=== PATIENT | female | born 1985 | race Caucasian/White ===

== ENCOUNTER 2017-05-04 09:35 | Observation (INO) | payer OTHER ==
[2017-05-04] MEDS ORDERED: PREN-96 PO (17:40)
== END 2017-05-04 11:00 | disposition home or self-care (01) | DRG 782 ==
LOC: LDRP 09:35
PROVIDERS: ADMIT Specialist; ATTEND Specialist
DX: O62.9 Abnormality of forces of labor, unspecified (principal); Z3A.39 39 weeks gestation of pregnancy
CPT/HCPCS: 59025; 81002; G0378

== ENCOUNTER 2017-05-05 09:30 | Observation (INO) | payer OTHER ==
[~2017-05-05] VITALS: Ht 175.3 cm; Wt 103.0 kg
[~2017-05-05 09:30] MED LIST: PREN-96 PO
[2017-05-05] MEDS ORDERED: LACTATED RINGER'S 2,000 ML IV ONE (10:15)
[2017-05-05 10:45] LABS: Basophils # (auto) 0 uL; Basophils % (auto) 0.2 % (0.0-2.0); Eosinophils # (auto) 0.1 uL; Eosinophils % (auto) 0.7 % (0.0-7.0); Hematocrit 37.4 % (36.0-46.0); Hemoglobin 12.6 g/dL (12.2-16.2); Lymphocytes # (auto) 2.5 uL; Lymphocytes % (auto) 25.6 % (10.0-50.0); Mean Corpuscular Hemoglobin 30.2 pg (28.0-32.0); Mean Corpuscular Hgb Conc. 33.6 g/dL (32.0-36.0); Mean Corpuscular Volume 89.8 fL (80.0-100.0); Mean Platelet Volume 9.1 fL (6.9-10.8); Monocytes # (auto) 0.6 uL; Monocytes % (auto) 6.4 % (0.0-12.0); Neutrophils # (auto) 6.6 uL; Neutrophils % (auto) 67.1 % (37.0-80.0); Platelet Count (auto) 182 10^3/uL (140-450); Red Cell Distribution Width 13.5 % (11.8-14.3); White Blood Cell 9.9 10^3/uL (4.4-10.8)
[2017-05-05 11:05] LABS: BUN/Creatinine Ratio 8.9; Calcium 8.7 mg/dL (8.5-10.1); Potassium 3.6 mmol/L (3.5-5.1)
== END 2017-05-05 11:30 | disposition home or self-care (01) | DRG 781 ==
LOC: LDRP 09:30
PROVIDERS: ADMIT Specialist; ATTEND Specialist
DX: O26.893 Other specified pregnancy related conditions, third trimester (principal); R19.7 Diarrhea, unspecified; Z3A.40 40 weeks gestation of pregnancy
CPT/HCPCS: 36415; 59025; 80048; 81002; 85025; G0378; 96361; 96366

== ENCOUNTER 2017-05-07 11:55 | Observation (INO) | payer OTHER | END 2017-05-07 13:10 | disposition home or self-care (01) | DRG 782 | LOC: LDRP 11:55 | PROVIDERS: ADMIT Specialist; ATTEND Specialist | DX: O48.0 Post-term pregnancy (principal); Z3A.40 40 weeks gestation of pregnancy | CPT/HCPCS: 59025; 76818; 81002; G0378 ==

== ENCOUNTER 2017-05-09 15:00 | Observation (INO) | payer OTHER ==
[~2017-05-09] VITALS: Ht 175.3 cm; Wt 103.0 kg
[2017-05-09] MEDS ORDERED: ceFAZolin 1GM/50ML D5W 50 ML IV ONE (15:04)
== END 2017-05-09 16:50 | disposition home or self-care (01) | DRG 782 ==
LOC: LDRP 15:00
PROVIDERS: ADMIT Obstetrics & Gynecology; ATTEND Obstetrics & Gynecology
DX: O48.0 Post-term pregnancy (principal); O62.9 Abnormality of forces of labor, unspecified; Z3A.40 40 weeks gestation of pregnancy
CPT/HCPCS: 59025; 76818; 81002; G0378; J0690

== ENCOUNTER 2017-05-10 19:50 | Inpatient (IN) | payer OTHER ==
[~2017-05-10] VITALS: Ht 175.3 cm; Wt 103.0 kg
[2017-05-10] MEDS ORDERED: LACT. RINGERS/OXYTOCIN 20UNITS 1,000 ML IV SCH (20:34)
[2017-05-10] MEDS ORDERED: NALBUPHINE HCL 10 MG/1ml INJECTION IV PRN (20:45)
[2017-05-10] MEDS ORDERED: DERMOPLAST 60ML BOTTLE TOP PRN (20:45)
[2017-05-10] MEDS ORDERED: METHYLERGONOVINE MALEATE 0.2 MG/ML AMP IM PRN (20:45)
[2017-05-10] MEDS ORDERED: PHISODERM TOP SOLN 240ML BTL TOP PRN (20:45)
[2017-05-10] MEDS ORDERED: LIDOCAINE 2%HCL (LOCAL ANESTH.) INJ 20ML MDV IJ ONE (20:45)
[2017-05-10] MEDS ORDERED: WITCH HAZEL-GLYCERIN PAD TOP PRN (20:45)
[2017-05-10] MEDS: LACTATED RINGER'S 1,000 ML IV SCH (21:04)
[2017-05-10 21:24] LABS: INR 0.92 (0.9-1.15); Partial Thromboplastin Time 26.7 sec (22.64-33.71)
[2017-05-10 21:25] LABS: Basophils # (auto) 0 uL; Basophils % (auto) 0.2 % (0.0-2.0); Eosinophils # (auto) 0.1 uL; Eosinophils % (auto) 0.8 % (0.0-7.0); Hematocrit 34.9 % (36.0-46.0); Hemoglobin 11.8 g/dL (12.2-16.2); Lymphocytes # (auto) 2.8 uL; Lymphocytes % (auto) 29.2 % (10.0-50.0); Mean Corpuscular Hemoglobin 30.4 pg (28.0-32.0); Mean Corpuscular Hgb Conc. 33.7 g/dL (32.0-36.0); Mean Corpuscular Volume 90.2 fL (80.0-100.0); Mean Platelet Volume 9.1 fL (6.9-10.8); Monocytes # (auto) 0.6 uL; Monocytes % (auto) 5.8 % (0.0-12.0); Neutrophils # (auto) 6.1 uL; Platelet Count (auto) 156 10^3/uL (140-450); Red Cell Distribution Width 13.5 % (11.8-14.3); White Blood Cell 9.5 10^3/uL (4.4-10.8)
[2017-05-10 21:26] LABS: Albumin 2.6 g/dL (3.4-5.0); BUN/Creatinine Ratio 10.8; Potassium 3.7 mmol/L (3.5-5.1)
[2017-05-10 21:28] LABS: Bilirubin, Total 0.2 mg/dL (0.2-1.0); Total Protein 6.1 g/dL (6.4-8.2)
[2017-05-10 22:45] LABS: Urine Bilirubin Negative (Negative); Urine Blood TRACE /uL (Negative); Urine Color Yellow (Yellow); Urine Glucose Normal (Normal); Urine Ketone Negative (Negative); Urine Nitrite Negative (Negative); Urine RBC <1 /hpf (0 - 4); Urine Squamous Epithelial Cell FEW /hpf (<5); Urine Urobilinogen Normal (Negative); Urine pH 6.5 (5.0-8.0)
[2017-05-11] MEDS ORDERED: LACT. RINGERS/OXYTOCIN 20UNITS 1,000 ML IV SCH (01:54)
[2017-05-11] MEDS ORDERED: TERBUTALINE SULFATE 1 MG/ML 1ML VIAL SC ONE (02:00)
[2017-05-11] MEDS ORDERED: LIDOCAINE HCL 2 %PF INJ 10ML AMP IJ ONE ×2 (03:45→03:52)
[2017-05-11] MEDS ORDERED: ePHEDrine SULFATE 50 MG/ML AMP IV ONE (03:45)
[2017-05-11] MEDS ORDERED: fentaNYL W ROPIVACAINE 150 ML EPI SCH (03:45)
[2017-05-11] MEDS ORDERED: fentaNYL CITRATE 100 MCG/2 ML VL IV ONE (03:45)
[2017-05-11] MEDS ORDERED: NALOXONE HCL 0.4 MG/ML VIAL IV ONE (03:45)
[2017-05-11] MEDS ORDERED: fentaNYL CITRATE 100 MCG/2 ML VL ONE (03:52)
[2017-05-11] MEDS ORDERED: NALOXONE HCL 0.4 MG/ML VIAL ONE (03:52)
[2017-05-11] MEDS ORDERED: fentaNYL W ROPIVACAINE 150 ML EPI ONE (03:52)
[2017-05-11] MEDS ORDERED: ePHEDrine SULFATE 50 MG/ML AMP ONE (03:52)
[2017-05-11] MEDS: LACTATED RINGER'S 1,000 ML IV SCH (04:34)
[2017-05-11 16:00] VITALS: BP 105/66
[2017-05-11] MEDS ORDERED: ACETAMINOPHEN 325 MG TAB PO PRN (17:00)
[2017-05-11] MEDS ORDERED: TETANUS-DIPTH-ACEL PERTUSSIS 0.5ML SYRG IM ONE (18:15)
[2017-05-11] MEDS: IBUPROFEN 600 MG TAB PO PRN (19:45)
[2017-05-11 20:00] VITALS: BP 108/57
[2017-05-11 23:30] VITALS: BP 108/65
[2017-05-12 03:30] VITALS: BP 105/66
[2017-05-12] MEDS: IBUPROFEN 600 MG TAB PO PRN ×2 (03:30→09:49)
[2017-05-12 07:30] VITALS: BP 102/57
[2017-05-12] MEDS ORDERED: DOCUSATE CALCIUM 240 MG CAP PO SCH (10:00)
[2017-05-12] MEDS ORDERED: PHISODERM TOP SOLN 240ML BTL TOP ONE (11:24)
[2017-05-12 11:30] VITALS: BP 151/69
== END 2017-05-12 13:50 | disposition home or self-care (01) | DRG 775 ==
LOC: LDRP 19:50
PROVIDERS: ADMIT Obstetrics & Gynecology; ATTEND Obstetrics & Gynecology
PROC: 10E0XZZ Delivery of Products of Conception, External Approach (ICD-10-PCS; principal; 2017-05-10)
PROC: 0KQM0ZZ Repair Perineum Muscle, Open Approach (ICD-10-PCS; 2017-05-10)
PROC: 10907ZC Drainage of Amniotic Fluid, Therapeutic from Products of Conception, Via Natural or Artificial Opening (ICD-10-PCS; 2017-05-10)
DX: O48.0 Post-term pregnancy (principal); O70.1 Second degree perineal laceration during delivery; Z37.0 Single live birth; Z82.49 Family history of ischemic heart disease and other diseases of the circulatory system; Z3A.40 40 weeks gestation of pregnancy; Z83.3 Family history of diabetes mellitus; Z23 Encounter for immunization
CPT/HCPCS: 36415; 51702; 59025; 59409; 62282; 80053; 81001; 81002; 85025; 85610; 85730; 86850; 86900; 86901; 90715; 96361; 96365; 96366; 96372; J2590; J3010